=== PATIENT | male | born 1965 | race Caucasian/White ===

== ENCOUNTER 2020-08-11 13:37 | Outpatient (CLI) | payer OTHER ==
[2020-08-11] MEDS ORDERED: GADOTERATE 10 MMOL/20 ML SYR ONE (15:05)
== END 2020-08-11 23:59 | disposition home or self-care (01) ==
LOC: RAD 13:37
PROVIDERS: ATTEND Internal Medicine
DX: S14.3XXA Injury of brachial plexus, initial encounter (principal); M48.02 Spinal stenosis, cervical region; X58.XXXA Exposure to other specified factors, initial encounter; Y93.89 Activity, other specified; Y92.89 Other specified places as the place of occurrence of the external cause; Y99.8 Other external cause status
CPT/HCPCS: 71552; 72141; A9575